=== PATIENT | female | born 1995 | race Caucasian/White ===

== ENCOUNTER 2018-09-13 16:30 | Observation (INO) | payer BC ==
[2018-09-13 17:58] LABS: Basophils % (A) 0 %; Eosinophils % (A) 1 %; HCT 35.5 % (34.0-46.0); HGB 11.9 gm/dL (11.4-16.0); Lymphocytes # (A) 1.5 k/uL (1.0-4.8); Lymphocytes % (A) 25 %; MCH 29.6 pg (25.0-35.0); MCHC 33.4 g/dL (31.0-37.0); MCV 88.5 fL (80.0-100.0); Mean Platelet Volume 6.6; Monocytes # (A) 0.3 k/uL (0-1.0); Monocytes % (A) 6 %; Neutrophils # (A) 3.9 k/uL (1.3-7.7); Neutrophils % (A) 66 %; Platelet Count 254 k/uL (150-450); RBC 4.01 m/uL (3.80-5.40); WBC 5.9 k/uL (3.8-10.6)
[2018-09-13 18:02] LABS: Appearance,Urine Cloudy (Clear); Bacteria,Urine Occasional /hpf; Bilirubin,Urine Negative (Negative); Blood,Urine Negative (Negative); Color,Urine Yellow; Glucose,Urine (UA) Negative (Negative); Ketones,Urine 2+ (Negative); Leukocyte Esterase,Urine Trace (Negative); Mucus,Urine Few /hpf; Nitrite,Urine Negative (Negative); PH, Urine 6.5 (5.0-8.0); Protein,Urine Trace (Negative); RBC,Urine 3 /hpf (0-5); Specific Gravity,Urine 1.016 (1.001-1.035); Squamous Epithelial Cell,Urine 13 /hpf (0-4); Urobilinogen,Urine <2.0 mg/dL (<2.0); WBC,Urine 4 /hpf (0-5)
[2018-09-13 18:04] LABS: ALT 13 U/L (9-52); AST 22 U/L (14-36); Albumin 3.9 g/dL (3.5-5.0); Alkaline Phosphatase 99 U/L (38-126); Anion Gap 9 mmol/L; Blood Urea Nitrogen 3 mg/dL (7-17); Calcium 8.5 mg/dL (8.4-10.2); Carbon Dioxide 22 mmol/L (22-30); Chloride 108 mmol/L (98-107); Glucose 86 mg/dL (74-99); Potassium 3.2 mmol/L (3.5-5.1); Sodium 139 mmol/L (137-145); Total Bilirubin 0.5 mg/dL (0.2-1.3); Total Protein 7.5 g/dL (6.3-8.2)
[2018-09-13] MEDS ORDERED: ONDANSETRON 4 MG/2 ML VIAL IVP PRN (18:21)
[2018-09-13] MEDS ORDERED: DIPHENOX-ATROP 2.5-0.025 MG 1 EACH TAB PO PRN (18:27)
[2018-09-13] MEDS ORDERED: LACTATED RINGERS 1,000 ML IV ONE (18:30)
[2018-09-13 18:57] VITALS: BMI 45.0
--- NOTE | 2018-09-13 19:01 | P.MSEPDOC ---
Presenting Problems - Arrival Data Date of Arrival on Unit: 09/13/18 Time of Arrival on Unit: 16:30 Mode of Transport: Ambulatory - Complaint OB-Reason for Admission/Chief Complaint: Acute Nausea/Vomiting Comment: n/v/d onset sunday 09/10 am. Medical History - Information : 2 Para: 1 Term: 1 : 0 Abortions: Spontaneous or Elective: 0 Number of Living Children: 1 - Gestational Age Gestational Age by KOURTNEY (wks/days): 28 Weeks and 6 Days Review of Systems - Review of Systems Constitutional: No problems Breast: No problems ENT: No problems Cardiovascular: No problems Respiratory: No problems Gastrointestinal: Diarrhea Genitourinary: No problems Musculoskeletal: No problems Neurological: No problems Skin: No problems Comment: questioning food poisoning from hamburger on sat night. Vital Signs - Temperature Temperature: 98.0 F Temperature Source: Oral - Pulse Right Brachial Pulse Rate: 102 Pulse Assessment Method: Automatic Cuff - Respirations Respiratory Rate: 18 Oxygen Delivery Method: Room Air O2 Sat by Pulse Oximetry: 98 - Blood Pressure Right Arm Blood Pressure: 133/72 Blood Pressure Mean: 92 Blood Pressure Source: Automatic Cuff Medical Screen Scoring (Pre) - Cervical Exam Dilation: Exam Deferred Effacement: Exam Deferred Membranes: Intact - Uterine Contractions Frequency: N/A Duration: N/A Intensity: N/A - Maternal Vital Signs Maternal Temperature: N/A Maternal Blood Pressure: N/A Signs of Preeclampsia: N/A Maternal Respirations: N/A - Pain Assessment Pain Scale Used: Numeric (1 - 10) Pain Intensity: 0 - Maternal Trauma Maternal Trauma: N/A - Assessment Baseline FHR: 140 Heart Rate - NICHD Category: Category I (Normal) = 0 NST: Reactive Position: N/A Station: N/A - Total Score Total Score (Pre): 0 - Level of Risk Level of Risk: Low (0-5) Physician Notification (Pre) - Physician Notified Spoke With: michelle Farah Order Received: Yes - Notification Comment Comment: plans admission with iv fluids and potassium Medical Screen Scoring (Post) - Cervical Exam Dilation: Exam Deferred Effacement: Exam Deferred - Uterine Contractions Frequency: N/A Duration: N/A Intensity: N/A - Maternal Vital Signs Maternal Temperature: N/A Maternal Blood Pressure: N/A Signs of Preeclampsia: N/A Maternal Respirations: N/A - Maternal Trauma Maternal Trauma: N/A - Assessment Heart Rate: 130 Heart Rate - NICHD Category: Category I (Normal) = 0 NST: Reactive Position: N/A Station: N/A - Total Score Total Score (Post): 0 - Post Treatment Level of Risk Post Treatment Level of Risk: Low (0-5) Physician Notification (Post) - Physician Notified Physician Notified Date: 09/13/18 Physician Notified Time: 18:10 Spoke With: michelle New Order Received: Yes - Notification Comment Comment: labs reviewed. admission orders for iv fluids and potassium Disposition - Disposition OB Disposition: Admit I agree with the RN Medical Screening Exam: Yes Risk & Benefit of care provided described in d/c instruction: Yes Diagnosis: DEHYDRATION
--- NOTE | 2018-09-13 19:08 | P.HPOB ---
History of Present Illness H&P Date: 09/13/18 Chief Complaint: Nausea, vomiting, diarrhea for 4 days. This patient is a pleasant 23-year-old 2 para 1 female estimated date of confinement 11/30/2018 estimated gestational age 28-6/7 who initially began getting sick on Tuesday with diarrhea and nausea and vomiting. Patient states that they had brought me from a meat market Tuesday evening. This meat apparently was prepackaged hamburger patties. Patient states nobody else at the house has gotten sick however she was the only 1 that ate the patties with cheese mixed in. Patient went to her local hospital on Tuesday and was given one bag of IV fluids and then sent home. Patient's continued to have diarrhea and nausea and vomiting. Evaluation here shows a potassium be low at 3.2 and 2+ ketones. 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, lymph node left ear removal History of Any Multi-Drug Resistant Organisms: None Reported Past Surgical History: Section Additional Past Surgical History / Comment(s): brain tumor, c/s, lymph node left ear Past Anesthesia/Blood Transfusion Reactions: No Reported Reaction Past Psychological History: No Psychological Hx Reported Smoking Status: Never smoker Past Alcohol Use History: None Reported Past Drug Use History: None Reported - Past Family History Father Family Medical History: Coronary Artery Disease (CAD), Diabetes Mellitus, Hypertension Mother Family Medical History: Hypertension, Musculoskeletal Disorder, Renal Disease Additional Family Medical History / Comment(s): arthritis Medications and Allergies Home Medications Medication Instructions Recorded Confirmed Type Pnv,Calcium 72/Iron/Folic Acid 1 tab PO DAILY 09/13/18 09/13/18 History [ Plus Tablet] Allergies Allergy/AdvReac Type Severity Reaction Status Date / Time No Known Allergies Allergy Verified 09/13/18 17:48 Exam Vital Signs Temp Pulse Resp BP Pulse Ox 09/13/18 19:00 98.0 F 102 H 18 133/72 98 09/13/18 18:50 98.0 F 102 H 18 133/72 98 09/13/18 17:20 98.0 F 102 H 18 133/72 98 09/13/18 16:30 98.0 F 102 H 18 133/72 98 Intake and Output 09/13/18 09/13/18 09/13/18 06:59 14:59 22:59 Other: Weight 138.346 kg - OBG Physical Exam Abdomen: bowel sounds normal, no diffuse tenderness, no bruit present, no guarding noted, no hepatomegaly, no splenomegaly, no mass Results Result Diagrams: 09/13/18 17:30 09/13/18 17:30 Abnormal Lab Results - Last 24 Hours (Table) 09/13/18 09/13/18 Range/Units 17:30 17:30 Potassium 3.2 L (3.5-5.1) mmol/L Chloride 108 H (98-107) mmol/L BUN 3 L (7-17) mg/dL Creatinine 0.35 L (0.52-1.04) mg/dL Urine Appearance Cloudy H (Clear) Urine Protein Trace H (Negative) Urine Ketones 2+ H (Negative) Ur Leukocyte Esterase Trace H (Negative) Ur Squamous Epith Cells 13 H (0-4) /hpf Urine Bacteria Occasional H (None) /hpf Urine Mucus Few H (None) /hpf Assessment and Plan Assessment: This is a pleasant 23-year-old 2 para 1 female at 28-6/7 weeks gestation with 4 days of nausea vomiting and diarrhea what appears to be possible food poisoning. Patient has a low potassium to 3.2 and 2+ ketones. Plan at this time is to give her IV hydration with some potassium, serial CBC and electrolyte levels, and anti-emetics/antidiarrheal. I am going to send a stool culture. (1) 28 weeks gestation of Current Visit: Yes Status: Acute Code(s): Z3A.28 - 28 WEEKS GESTATION OF SNOMED Code(s): 13506100 (2) Dehydration Current Visit: Yes Status: Acute Code(s): E86.0 - DEHYDRATION SNOMED Code(s): 98091472 (3) Hypokalemia Current Visit: Yes Status: Acute Code(s): E87.6 - HYPOKALEMIA SNOMED Code(s): 94523379
[2018-09-13] MEDS: LACTATED RINGERS 1,000 ML with POTASSIUM CHLORIDE 20 MEQ IV SCH ×2 (20:13)
[2018-09-13] MEDS: POTASSIUM CHLORIDE ER 20 MEQ TAB.ER PO SCH (21:11)
[2018-09-14] MEDS: LACTATED RINGERS 1,000 ML with POTASSIUM CHLORIDE 20 MEQ IV SCH ×2 (04:14)
[2018-09-14 05:57] LABS: Basophils % (A) 0 %; Eosinophils # (A) 0.1 k/uL (0-0.7); Eosinophils % (A) 2 %; HCT 32.4 % (34.0-46.0); HGB 10.6 gm/dL (11.4-16.0); Lymphocytes # (A) 1.9 k/uL (1.0-4.8); Lymphocytes % (A) 36 %; MCH 29.1 pg (25.0-35.0); MCHC 32.8 g/dL (31.0-37.0); MCV 88.9 fL (80.0-100.0); Monocytes # (A) 0.4 k/uL (0-1.0); Monocytes % (A) 7 %; Neutrophils # (A) 2.8 k/uL (1.3-7.7); Neutrophils % (A) 52 %; Platelet Count 229 k/uL (150-450); RBC 3.64 m/uL (3.80-5.40); RDW 14.5 % (11.5-15.5); WBC 5.4 k/uL (3.8-10.6)
[2018-09-14 06:12] LABS: ALT 10 U/L (9-52); AST 18 U/L (14-36); Albumin 3.2 g/dL (3.5-5.0); Alkaline Phosphatase 82 U/L (38-126); Anion Gap 7 mmol/L; Blood Urea Nitrogen <2 mg/dL (7-17); Calcium 8.2 mg/dL (8.4-10.2); Carbon Dioxide 21 mmol/L (22-30); Chloride 109 mmol/L (98-107); Glucose 82 mg/dL (74-99); Potassium 3.2 mmol/L (3.5-5.1); Sodium 137 mmol/L (137-145); Total Bilirubin 0.6 mg/dL (0.2-1.3); Total Protein 6.4 g/dL (6.3-8.2)
--- NOTE | 2018-09-14 06:56 | P.PN ---
Progress Note - Text Progress Note Date: 09/14/18 Patient is resting overnight with no episodes of vomiting. She did have approximately 3 episodes of diarrhea. Repeat labs show her potassium is 3.2. Patient is tolerating liquids overnight. Stool cultures pending. My impression is that this most likely is a gastrointestinal in nature and most likely related to food contamination. Patient appears stable to go home on oral potassium and Lomotil. Follow-up with me in 1 week.
--- NOTE | 2018-09-14 06:58 | P.DS ---
Providers Date of admission: 09/13/18 18:20 Expected date of discharge: 09/14/18 Attending physician: Guilherme Canela Primary care physician: Stated None - Discharge Diagnosis(es) (1) 28 weeks gestation of Current Visit: Yes Status: Acute (2) Dehydration Current Visit: Yes Status: Acute (3) Hypokalemia Current Visit: Yes Status: Acute Hospital Course: Please see dictated H&P for intimate details of this patient's admission. In brief summary this is a pleasant 23-year-old female 2 para 1 female at 28 weeks gestation with 4 days of nausea vomiting and diarrhea after eating questionable contaminated food. Patient's potassium was low on admission with 2+ ketones. She was given IV hydration and IV potassium as well as oral potassium. Patient is feeling better and had no nausea vomiting overnight did have 3 episodes of diarrhea. Patient's felt be stable she can tolerate breakfast follow up with me as an outpatient. Patient Condition at Discharge: Good Plan - Discharge Summary Discharge Rx Participant: No New Discharge Prescriptions: New Potassium Chloride ER [K-Dur 20] 20 meq PO BID 14 Days #28 tab.er.prt No Action Pnv,Calcium 72/Iron/Folic Acid [ Plus Tablet] 1 tab PO DAILY Discharge Medication List Pnv,Calcium 72/Iron/Folic Acid [ Plus Tablet] 1 tab PO DAILY 09/13/18 [History] Potassium Chloride ER [K-Dur 20] 20 meq PO BID 14 Days #28 tab.er.prt 09/14/18 [Rx] Follow up Appointment(s)/Referral(s): Guilherme Canela MD [STAFF PHYSICIAN] - 1 Week (Please follow-up next week as scheduled.) Patient Instructions/Handouts: Dehydration (DC) Activity/Diet/Wound Care/Special Instructions: Please increase oral fluids as instructed. May take Imodium as needed. Return if unable to keep anything down for 24 hour period. Discharge Disposition: HOME SELF-CARE
[2018-09-14 07:21] VITALS: BP 126/70; PULSE 88; RESP 18; TEMP 96.4
[2018-09-14] MEDS: POTASSIUM CHLORIDE ER 20 MEQ TAB.ER PO SCH (09:42)
== END 2018-09-14 11:25 | disposition home or self-care (01) ==
LOC: FBPOP 16:30 → 4FBP 18:20
PROVIDERS: ADMIT Obstetrics & Gynecology; ATTEND Obstetrics & Gynecology
DX: O99.283 Endocrine, nutritional and metabolic diseases complicating pregnancy, third trimester (principal); O21.2 Late vomiting of pregnancy; R19.7 Diarrhea, unspecified; E86.0 Dehydration; E87.6 Hypokalemia; O34.219 Maternal care for unspecified type scar from previous cesarean delivery; Z3A.28 28 weeks gestation of pregnancy; Z86.011 Personal history of benign neoplasm of the brain; Z82.49 Family history of ischemic heart disease and other diseases of the circulatory system; Z83.3 Family history of diabetes mellitus; Z82.61 Family history of arthritis; Z84.1 Family history of disorders of kidney and ureter
CPT/HCPCS: 59025; 99214; 96361; 96365; 96366 ×2; 80053 ×2; 85025 ×2; 81001; 87045; 87046; G0378 ×2; J3480 ×2